=== PATIENT | male | born 1975 | race Caucasian/White ===

== ENCOUNTER 2023-08-06 16:54 | Emergency (ER) | payer OTHER ==
[~2023-08-06] VITALS: Ht 185.4 cm; Wt 84.0 kg
[~2023-08-06 16:54] MED LIST: NORCO 5-325 TA1 EACH PO
[2023-08-06] MEDS ORDERED: TETRACAINE HCL 0.5% 4 ML BTL OS ONE (18:45)
[2023-08-06] MEDS ORDERED: FLUORESCEIN SOD 1 EA STRP OS ONE (18:45)
[2023-08-06] MEDS ORDERED: OCUFLOX5 ML OS (19:56)
[2023-08-06 20:09] VITALS: BP 159/118
== END 2023-08-06 20:09 | disposition home or self-care (01) ==
LOC: ED 16:54
DX: T15.02XA Foreign body in cornea, left eye, initial encounter (principal); W44.D0XA Magnetic metal object unspecified, entering into or through a natural orifice, initial encounter; H16.002 Unspecified corneal ulcer, left eye; F17.200 Nicotine dependence, unspecified, uncomplicated
CPT/HCPCS: 65220; 99283